=== PATIENT | male | born 1995 | race Asian ===

== ENCOUNTER 2020-01-03 19:09 | Emergency (ER) | payer MEDICAID, OTHER ==
[~2020-01-03] VITALS: Ht 177.8 cm; Wt 56.7 kg
[2020-01-03 21:14] VITALS: BP 123/81
== END 2020-01-03 21:39 | disposition home or self-care (01) ==
LOC: ER 19:09
DX: S83.104A Unspecified dislocation of right knee, initial encounter (principal); S83.91XA Sprain of unspecified site of right knee, initial encounter; M25.461 Effusion, right knee; V00.131A Fall from skateboard, initial encounter; Y93.89 Activity, other specified; Y92.89 Other specified places as the place of occurrence of the external cause; Y99.8 Other external cause status
CPT/HCPCS: 29505; 73562